=== PATIENT | female | born 1960 | race Caucasian/White ===

== ENCOUNTER 2019-01-08 09:15 | Inpatient (IN) ==
[2019-01-08] MEDS ORDERED: ASPIRIN CHEW 324 MG PO STA (09:33)
[2019-01-08 09:42] LABS: Basophils # (auto) 0.02 K/uL (0-0.2); Basophils % (auto) 0.4 %; Eosinophils # (auto) 0.07 K/uL (0-0.5); Eosinophils % (auto) 1.2 %; Hematocrit (blood only) 41.3 % (37-47); Hemoglobin 14.5 g/dL (12.0-16.0); Immature Granulocytes # (auto) 0.01 K/uL (0.00-0.02); Immature Granulocytes % (auto) 0.2 %; Lymphocytes # (auto) 1.62 K/uL (1.2-3.4); Lymphocytes % (auto) 28.7 %; Mean Corpuscular Hgb Conc 35.1 g/dL (32-36); Mean Corpuscular Volume 88.8 fL (80-100); Mean Platelet Volume 10.6 fL (7.4-10.4); Monocytes # (auto) 0.41 K/uL (0.11-0.59); Monocytes % (auto) 7.3 %; Neutrophils # (auto) 3.51 K/uL (1.4-6.5); Neutrophils % (auto) 62.2 %; Platelet Count 200 K/uL (130-400); RDW Coefficient of Variation 13.1 % (11.5-14.5); RDW Standard Deviation 42.1 fL (36.4-46.3); Red Blood Count 4.65 M/uL (4.2-5.4); White Blood Count 5.64 K/uL (4.8-10.8)
--- NOTE | 2019-01-08 09:48 | Emergency Department Note ---
Entered by Jayne Corley acting as a scribe for ED Provider Note Name: Mirna Martinez Age: 58 Arrives Via: Private vehicle Informant: Patient CC: Chest pain HPI: 58 year old female arrives for evaluation of intermittent central chest pain that started a couple of weeks ago. The patient reports her pain was worse this morning and has trouble breathing. She notes she never experienced an episode like this before. The patient states she has a headache which is normal. She reports she is not a smoker and does not use alcohol or drugs. The patient states her dad has a pacemaker. The patient denies leg swelling, rashes, or loss of consciousness. ROS: See above HPI for pertinent positives & negatives. A total of 10 systems reviewed and were otherwise negative. Past Medical History: Depression Past Surgical History: Caesarean section Family History: Father has a pacemaker Social History: Non smoker Home Medications: Fluoxetine Allergies No known allergies Physical: Vitals: BP: 147/89 Pulse: 65 Resp: 16 Temp: 98.2 F O2 Sat: 97 Delivery: Room air Exam: GENERAL: Patient is mildly anxious appearing and in minimal distress. EYES: No scleral icterus, unremarkable pupils. ENT: Mucous membranes moist, no nasal congestion. NECK: No masses appreciated, no meningismus, trachea is midline. RESPIRATORY: No dyspnea. Clear to auscultation and equal bilaterally. No wheeze, no rhonchi. CARDIOVASCULAR: Regular rate and rhythm. No murmurs, rubs, gallops appreciated. GASTROINTESTINAL: Abdomen soft, non-tender, no peritonitis. Bowel sounds positive. No masses appreciated. BACK: No midline tenderness, no CVA tenderness EXTREMITIES: Normal motion all extremities, no cyanosis, no edema. NEUROLOGIC: Alert and oriented, no acute motor or sensory deficits, no focal weakness, cranial nerves grossly intact. SKIN: No rash, no jaundice, no diaphoresis. ED Course: Prior Medical Record, Triage/Nursing Notes, Medications, Allergies reviewed by Me Vital Signs: reviewed and unremarkable Labs: Reviewed and remarkable for +trop, +dimer Interventions: saline lock, asa 324mg po, heparin bolus/gtt Imaging: XR chest 1V portable HISTORY: Atypical Chest pain COMPARISON: None. FINDINGS: The lungs are clear. Cardiac silhouette is normal in size. No pleural effusions. No pneumothorax. IMPRESSION: No acute process. Electronically signed by: Chano Deluna M.D. 01/08/2019 9:51 AM EKG: Per My Interpretation: Indication Chest Pain: NSR 63 bpm qtc 419 with anterior t wave inversions. No ectopy nor STEMI. There is no previous for comparison. Consults: 1012: I dicussed the patient's case with Dr. Velez, Cardiology. He agrees with the treatment plan. 1036: I discussed the patient's case with Dr. Khan, [facility] Hospitalist. He said to hold off the CT scan until he evaluates the patient. Course: 928: The patient was evaluated in room A2. A complete history and physical exam was performed. 1010: I checked on the patient. No further chest pain. I discussed the risks and benefits of heparin and she agrees. I paged [facility] Cardiology and hosp italist for admission. 1033: I talked to the patient about the CT PE study and she is agreeable. Blood pressure: Normal. No Referral necessary Disposition: Being evaluated by a hospitalist. Differentials: Etiologies such as shingles, musculoskeletal pain, pericarditis, myocarditis, cardiac ischemia, pericardial tamponade, pneumonia, pneumothorax, pleural effusion, hemothorax, pleurisy, aortic pathology, pulmonary embolism, intra-abdominal process, as well as others were considered. Medical Decision Making: Pleasant 58 yr old female with history of depression and father with ID arrives with intermittent substernal chest pains though on arrival no chest pain. Noted some shortness of breath with pain though no breathlessness nor sob currently. She has unremarakble exam with good pulses throughout. CXR OK. EKG with anterior T wave inversions, without previous to compare to. No STEMI noted. She is stable without discomfort. ASA 324mg PO given. Labs with elevated trop and elevated dimer. Likely NSTEMI given EKG changes and symptoms. Dimer is obdulio vated and initially CT PE ordered though at request hospitalist will hold off on this for now. Reviewed pros/cons/risks of heparin and without contraindication patient agrees to starting this. Patient monitored closely and no bleeding issues noted. Hospitalist down to evaluate further. Reviewed with Cards who agrees with plan. Impression: NSTEMI Critical Care Time: I have personally spent greater than 45 minutes of critical care time in the direct management of this patient. ACS with NSTEMI who was started on heparin. This was a life/limb threatening event. This includes time spent evaluating patient, direct bedside care, chart review, placing orders, interpretation of diagnostic studies, discussion with consultants, patient, and family members, as well as other required patient management activities. This 45 minutes is in excess of all separately billable procedures. The scribe's documentation has been prepared under my direction and personally reviewed by me in its entirety. I confirm that the note above accurately reflects all work, treatment, procedures, and medical decision making performed by me. Artemio Rodriguez MD .[email or web address] Impression & Plan Non-ST elevation ID (NSTEMI) Past Med/Surg History Medical History Depression (Chronic) Family History Other Pacemaker Social History Preferred Language: Portuguese Communication Ability: Effective Beliefs That Will Affect Care: None Current Living Situation: Spouse Other Information That Helps Us Care for You: No Feels Safe at Home: Yes Safety Concerns: Feels Safe At This Time Smoking Status: Never smoker Hx Alcohol Use: No Hx Substance Use: No Results & Data Vital Signs Vital Signs - 24 hr 01/08/19 09:19 01/08/19 09:29 01/08/19 09:30 Temperature 36.8 C Temperature Source Oral Sepsis Recent Fever Within 48 Hours No Sepsis New/Unexplained Change in Mental Status No Sepsis Action Taken by Nursing No Action Required Pulse Rate 72 63 65 Pulse Rate [Apical] Pulse Rhythm Regular Pulse Strength Normal Respiratory Rate 20 21 20 Respiratory Effort / Characteristics Non-Labored Spontaneous Respiratory Depth Normal Respiratory Pattern Regular Blood Pressure 150/92 H Blood Pressure [Left Arm] Blood Pressure Mean 111 Blood Pressure Mean [Left Arm] Blood Pressure Position Sitting Pulse Oximetry 97 Oxygen Delivery Method Room Air 01/08/19 09:50 01/08/19 10:00 01/08/19 10:28 Temperature Temperature Source Sepsis Recent Fever Within 48 Hours Sepsis New/Unexplained Change in Mental Status Sepsis Action Taken by Nursing Pulse Rate 65 65 60 Pulse Rate [Apical] 65 Pulse Rhythm Pulse Strength Respiratory Rate 20 18 18 Respiratory Effort / Characteristics Respiratory Depth Respiratory Pattern Blood Pressure 147/89 H 156/85 H Blood Pressure [Left Arm] 147/89 H Blood Pressure Mean 108 108 Blood Pressure Mean [Left Arm] 108 Blood Pressure Position Pulse Oximetry 97 Oxygen Delivery Method Room Air Room Air 01/08/19 10:29 01/08/19 10:30 Temperature Temperature Source Sepsis Recent Fever Within 48 Hours Sepsis New/Unexplained Change in Mental Status Sepsis Action Taken by Nursing Pulse Rate 64 Pulse Rate [Apical] 61 Pulse Rhythm Pulse Strength Respiratory Rate 16 16 Respiratory Effort / Characteristics Respiratory Depth Respiratory Pattern Blood Pressure 155/95 H Blood Pressure [Left Arm] 156/85 H Blood Pressure Mean 115 Blood Pressure Mean [Left Arm] 108 Blood Pressure Position Pulse Oximetry 95 Oxygen Delivery Method Home Medications Current Medication List: was personally reviewed by me Laboratory Data Attestation: I reviewed the patient's lab results. Result diagrams: 01/08/19 09:30 01/08/19 09:30 Lab Results 01/08/19 01/08/19 01/08/19 Range/Units 09:30 09:30 09:30 WBC 5.64 (4.8-10.8) K/uL RBC 4.65 (4.2-5.4) M/uL Hgb 14.5 (12.0-16.0) g/dL Hct 41.3 (37-47) % MCV 88.8 (80-100) fL MCH 31.2 (25-34) pg MCHC 35.1 (32-36) g/dL RDW Std Deviation 42.1 (36.4-46.3) fL RDW Coeff of Chandana 13.1 (11.5-14.5) % Plt Count 200 (130-400) K/uL MPV 10.6 H (7.4-10.4) fL Immature Gran % (Auto) 0.2 % Neut % (Auto) 62.2 % Lymph % (Auto) 28.7 % Phillips % (Auto) 7.3 % Eos % (Auto) 1.2 % Baso % (Auto) 0.4 % Immature Gran # (Auto) 0.01 (0.00-0.02) K/uL Neut # (Auto) 3.51 (1.4-6.5) K/uL Lymph # (Auto) 1.62 (1.2-3.4) K/uL Phillips # (Auto) 0.41 (0.11-0.59) K/uL Eos # (Auto) 0.07 (0-0.5) K/uL Baso # (Auto) 0.02 (0-0.2) K/uL PT 10.6 (9.0-12.0) Seconds INR 1.0 (0.9-1.1) APTT 25.9 (21.0-31.0) Seconds PTT Ratio 1.0 D-Dimer 1000 H* (0-500) ug/L FEU Sodium 142 (136-145) mmol/L Potassium 3.9 (3.5-5.1) mmol/L Chloride 107 (98-107) mmol/L Carbon Dioxide 27 (21-32) mmol/L Anion Gap 7.0 (3-11) BUN 18 (7-18) mg/dl Creatinine 0.88 (0.6-1.2) mg/dl Est Cr Clr Drug Dosing 73.6 ml/min Est GFR ( Amer) 84.5 Est GFR (Non-Af Amer) 72.9 BUN/Creatinine Ratio 20.8 H (10-20) Glucose 107 H (70-99) mg/dl Calcium 8.8 (8.5-10.1) mg/dl Total Bilirubin 0.7 (0.2-1) mg/dl Direct Bilirubin 0.2 (0-0.2) mg/dl AST 16 (15-37) U/L ALT 25 (12-78) U/L Alkaline Phosphatase 109 (45-117) U/L Troponin I 0.215 H* (0-0.045) ng/ml Total Protein 8.0 (6.4-8.2) gm/dl Albumin 4.0 (3.4-5.0) gm/dl Lipase 126 (73-393) U/L Hepatitis C Ab Screen (Neg) 01/08/19 01/08/19 Range/Units 09:30 09:30 WBC (4.8-10.8) K/uL RBC (4.2-5.4) M/uL Hgb (12.0-16.0) g/dL Hct (37-47) % MCV (80-100) fL MCH (25-34) pg MCHC (32-36) g/dL RDW Std Deviation (36.4-46.3) fL RDW Coeff of Chandana (11.5-14.5) % Plt Count (130-400) K/uL MPV (7.4-10.4) fL Immature Gran % (Auto) % Neut % (Auto) % Lymph % (Auto) % Phillips % (Auto) % Eos % (Auto) % Baso % (Auto) % Immature Gran # (Auto) (0.00-0.02) K/uL Neut # (Auto) (1.4-6.5) K/uL Lymph # (Auto) (1.2-3.4) K/uL Phillips # (Auto) (0.11-0.59) K/uL Eos # (Auto) (0-0.5) K/uL Baso # (Auto) (0-0.2) K/uL PT Cancelled (9.0-12.0) Seconds INR Cancelled (0.9-1.1) APTT Cancelled (21.0-31.0) Seconds PTT Ratio Cancelled D-Dimer (0-500) ug/L FEU Sodium (136-145) mmol/L Potassium (3.5-5.1) mmol/L Chloride (98-107) mmol/L Carbon Dioxide (21-32) mmol/L Anion Gap (3-11) BUN (7-18) mg/dl Creatinine (0.6-1.2) mg/dl Est Cr Clr Drug Dosing ml/min Est GFR ( Amer) Est GFR (Non-Af Amer) BUN/Creatinine Ratio (10-20) Glucose (70-99) mg/dl Calcium (8.5-10.1) mg/dl Total Bilirubin (0.2-1) mg/dl Direct Bilirubin (0-0.2) mg/dl AST (15-37) U/L ALT (12-78) U/L Alkaline Phosphatase (45-117) U/L Troponin I (0-0.045) ng/ml Total Protein (6.4-8.2) gm/dl Albumin (3.4-5.0) gm/dl Lipase (73-393) U/L Hepatitis C Ab Screen Neg (Neg) Administered Medications Heparin Sodium/Dextrose (Heparin Sodium/Dextrose) 25,000 units in 500 mls @ 24 mls/hr IV .[id number] [facility]; Protocol Stop: 02/07/19 10:14 Last Admin: 01/08/19 10:25 Dose: 1,200 units/hr, 24 mls/hr Documented by: [id number] Cosigned by: [id number] Discontinued Medications Aspirin (Aspirin) 324 mg PO NOW STA Stop: 01/08/19 09:34 Last Admin: 01/08/19 09:50 Dose: 324 mg Documented by: [id number] Clopidogrel Bisulfate (Plavix) 300 mg PO NOW STA Stop: 01/08/19 11:27 Last Admin: 01/08/19 11:51 Dose: 300 mg Documented by: [id number] Heparin Sodium (Porcine) (Heparin Sodium (Porcine)) Confirm Administered Dose 5 ,000 units .ROUTE .STK-MED ONE Stop: 01/08/19 10:23 Last Admin: 01/08/19 10:26 Dose: 5,000 units Documented by: [id number] Cosigned by: [id number] Heparin Sodium/Dextrose () 1 ea IV NOW STA; Protocol Stop: 01/08/19 10:09 Last Admin: 01/08/19 10:26 Dose: Not Given Documented by: [id number] Pantoprazole Sodium (Protonix) 40 mg PO NOW STA Stop: 01/08/19 11:29 Last Admin: 01/08/19 11:51 Dose: 40 mg Documented by: [id number] Imaging Data Radiologist's Impression: Radiology results as stated below per my review and the radiologist's interpretation: XR chest 1V portable HISTORY: Atypical Chest pain COMPARISON: None. FINDINGS: The lungs are clear. Cardiac silhouette is normal in size. No pleural effusions. No pneumothorax. IMPRESSION: No acute process. Electronically signed by: Chano Deluna M.D. 01/08/2019 9:51 AM Blood Pressure Blood Pressure Findings: Normal blood pressure Blood Pressure Disposition: did not require urgent referral Discharge Plan Visit Data *Final* Discharge Date/Time: 01/08/19 12:06 Chief Complaint: Chest Pain Stated Complaint: CHEST PAIN, COLD ED Provider: Artemio Rodriguez Discharge Problem: Non-ST elevation ID (NSTEMI) Patient Disposition: Admitted As Inpatient Discharge Instructions Interventions: ED Discharge Assessment Last Done: 01/08/19 12:06 The scribe's documentation has been prepared under my direction and personally reviewed by me in its entirety. I confirm that the note above accurately reflects all work, treatment, procedures, and medical decision making performed by me.
--- NOTE | 2019-01-08 09:53 | XRay Report ---
XR chest 1V portable HISTORY: Atypical Chest pain COMPARISON: None. FINDINGS: The lungs are clear. Cardiac silhouette is normal in size. No pleural effusions. No pneumot horax. IMPRESSION: No acute process. Electronically signed by: Chano Deluna M.D. 01/08/2019 9:51 AM
[2019-01-08 09:55] LABS: BUN Creatinine Ratio 20.8 (10-20); Bilirubin Direct 0.2 mg/dl (0-0.2); Calcium 8.8 mg/dl (8.5-10.1); Creatinine Clr Calc Pharmacy 73.6 ml/min; Est GFR (African American) 84.5; Est GFR (Non-African American) 72.9; Potassium 3.9 mmol/L (3.5-5.1)
[2019-01-08 10:06] LABS: Bilirubin,Total 0.7 mg/dl (0.2-1); Troponin I 0.215 ng/ml (0-0.045)
[2019-01-08] MEDS ORDERED: HEPARIN SOD 5,000 UNIT/0.5 ML VIAL ONE (10:22)
[2019-01-08] MEDS: HEPARIN SODIUM/DEXTROSE 25,000 UNITS/500 ML BAG IV SCH (10:25)
[2019-01-08 10:26] LABS: Partial Thromboplastin Time 25.9 Seconds (21.0-31.0); Prothrombin Time 10.6 Seconds (9.0-12.0)
[2019-01-08 10:31] LABS: D Dimer 1000 ug/L FEU (0-500)
--- NOTE | 2019-01-08 10:53 | History & Physical Report ---
Date of Service January 08, 2019 Assessment & Plan (1) Non-ST elevation IN (NSTEMI): Patient will be admitted for a NSTEMI. Patient complains of chest pain with atypical features. But it appears it has been gradually worsening over course of past 2 weeks. Trop is elevated at 0.2 will trend trop Patient received ASA 325 and will load with plavix. Patient will continue on Plavix in AM. Patient will continue on heparin drip. ER ordered D-DIMER but Well's criteria is zero. And history and clinical picture does not FIT Pulmonary emboli. Will hold off further imaging for pulmonary emboli. Started atorvastatin in hs. Check FLP in AM. Plan is to cath in AM. will also obtain echocardiogram. Note: at 16:00 trop tapered down. (2) Depression: will hold off fluoxetine due to interaction with plavix. This slows down conversion to active form. May consider switching to SNRI like cymbalta. Patient also placed on pantoprazole for GI prophylaxis. Disp: PCU. History of Present Illness Patient is a poor historian. Chief Complaint: Chest pain Primary Care Provider: ALEXANDER Lara This is a pleasant 58 yo female who reports having Past Medical history of depression. She states though that for the past 2 weeks she has had intermittent chest pain which is Sharp in nature, mid sternal, non radiating, moderate in intensity. She states pain would occur at rest and during exertion. It would also be accompanied by SOB on exertion. Patient feels like the pain has been worsening for the past 2 weeks. The pain again occured, accompanied by chills this morning which prompted the patient to seek medical attention. Allergies Allergy/AdvReac Type Severity Reaction Status Date / Time fluconazole Allergy Unknown Verified 01/08/19 11:39 Home Medications Home Medications Medication Instructions Recorded Confirmed Type fluoxetine 40 mg capsule 40 mg PO DAILY #90 cap 12/13/18 01/08/19 Rx Past Med/Surg History Medical History Depression (Chronic) Family History Other Pacemaker Social History Preferred Language: Malay Communication Ability: Effective Beliefs That Will Affect Care: None Current Living Situation: Spouse Other Information That Helps Us Care for You: No Feels Safe at Home: Yes Safety Concerns: Feels Safe At This Time Smoking Status: Never smoker Hx Alcohol Use: No Hx Substance Use: No Review of Systems Constitutional: no fever, no sweats and no malaise Eyes: no blind spots Ear, Nose, Mouth, Throat: no ear pain Respiratory: no cough Cardiovascular: no radiating jaw, neck or arm pain Integumentary: no acne Neurologic: no paralysis and no numbness Psychiatric: + depression; no behavioral changes and no hopelessness Endocrine: + fatigue Hematologic / Lymphatic: no easy bleeding Allergy / Immunological: no GI upset with certain foods Physical Exam Constitutional: WD/WN, vitals as above well developed, average body habitus and + disheveled Eyes: PERRL, conjunctivae normal, anicteric sclerae Neck: trachea midline, no thyromegaly Respiratory: normal respiratory effort, lungs clear to auscultation Cardiovascular: RRR, no murmur, no edema Gastrointestinal (Abdomen): normal bowel sounds, soft, nontender, no hepatosplenomegaly Skin: no rashes, warm and dry Neurologic: PERRL, EOMI, accommodation nl, no face palsy, no dysarthria Psychiatric: A+Ox3, euthymic affect Lymphatic: no cervical or axillary lymphadenopathy Results & Data Vital Signs (Past 12 Hours) Vital Signs Temp Pulse Pulse Resp BP BP Pulse Ox 01/08/19 10:29 61 16 156/85 H 95 01/08/19 09:50 65 16 147/89 H 97 01/08/19 09:19 36.8 C 72 20 150/92 H 97 PG Care Time/CCT Total # of Minutes Spent Total Time Spent with Patient: Total time spent is greater than 50% in coordination of care (as documented) at patient's floor/unit and/or counseling patient:
[2019-01-08] MEDS ORDERED: CLOPIDOGREL BISULFATE 300 MG TAB PO STA (11:26)
[2019-01-08] MEDS ORDERED: PANTOprazole 40 MG TAB PO STA (11:28)
[2019-01-08] MEDS ORDERED: NITROGLYCERIN SL 0.4 MG/TAB TAB SL PRN (12:42)
--- NOTE | 2019-01-08 16:27 | Cardiology Consultation ---
Date of Consultation January 08, 2019 Assessment & Plan (1) Non-ST elevation IN (NSTEMI): The patient's symptoms of chest pain are quite atypical. The did not appear to be characteristic of an acute coronary syndrome or even angina. However, her symptoms of throat and neck discomfort last evening would be more characteristic of an acute coronary syndrome. She does have objective abnormalities including elevated cardiac biomarkers and an abnormal EKG. She has some family history of premature coronary disease as her son apparently had myocardial infarction at age 31. She has been started on heparin given dual anti-platelet therapy. Vital signs appear normal in her heart rate is well controlled. We discussed options for evaluation. Based on the objective findings I did recommend coronary angiography. I think more interesting with regards to symptoms as her throat and neck pain which could be resources representative of an acute coronary syndrome. Currently feeling well. I described the risks benefits and alternatives of coronary angiography with the patient and her family. Will plan on proceeding tomorrow. History of Present Illness Reason for Consultation: Chest pain Requesting Physician: Bill Attending Physician: Marty Khan History of Present Illness The patient is a 58-year-old woman without a known history of cardiac disease who presented to the emergency room with symptoms of chest discomfort. Patient states that for approximately 2 weeks she has been having intermittent episodes of a sharp, stabbing discomfort close to the xiphoid process. This symptom does not appear to be associated with any particular activity or position. S eems to occur quite randomly but does occur at least once daily. It does not appear to be associated with significant breathing difficulty. He states that there is some discomfort with deep breathing and perhaps with palpation of that area. In general she is a sedentary individual who appears to provide childcare for her grandchildren as her primary activity. This occasionally involves lifting and infant an at ascending stairs. She states she has no difficulty doing these tasks but occasionally descending stairs she will have some mild dizziness. She has not report symptoms that involve presyncope and she has not had syncope. She occasionally have palpitations that are poorly described. She has difficulty characterizing this sense of palpitation or change in heartbeat. Curiously, last evening she did report a sense of pressure in her throat. She states this lasted for approximately 30 minutes prior to resolution. Allergies Allergy/AdvReac Type Severity Reaction Status Date / Time fluconazole Allergy Unknown Verified 01/08/19 11:39 Home Medications Home Medications Medication Instructions Recorded Confirmed Type fluoxetine 40 mg capsule 40 mg PO DAILY #90 cap 12/13/18 01/08/19 Rx Patient History Medical History Depression (Chronic) Family History Other Pacemaker Social History Preferred Language: Angolan Communication Ability: Effective Beliefs That Will Affect Care: None Current Living Situation: Spouse Other Information That Helps Us Care for You: No Feels Safe at Home: Yes Safety Concerns: Feels Safe At This Time Smoking Status: Never smoker Hx Alcohol Use: No Hx Substance Use: No Review of Systems Review of Systems: All systems reviewed & are unremarkable except as noted in HPI & below No recent constitutional symptoms such as fevers or chills. No lower extremity edema. No orthopnea or paroxysmal nocturnal dyspnea. She does suffer from depression. Physical Exam Physical Exam: She is alert and oriented x3. Mood affect appear normal. She answered all questions appropriately. HEENT: Sclerae are anicteric. Pupils are equal and reactive to light and accommodation. Extraocular movements were intact. Poor dentition. Hirsutism Neuro: Cranial nerves intact Neck: Examination of the submandibular region did not reveal any significant lymphadenopathy. Carotids are palpable bilaterally and free of bruits on auscultation. There was no evidence of jugular venous distention. The thyroid was not enlarged. Lungs: Lungs are clear to auscultation bilaterally. There are no rales wheezes or rhonchi. She has normal respiratory effort without use of accessory muscles. There is normal pulmonary excursion. Cardiac: The rhythm was regular. S1 and S2 were normal. There are no murmurs on examination. The PMI was not markedly displaced on palpation. Abdomen: The abdomen was soft and nontender. Extremities: Patient has bilateral radial pulses that are equal in intensity. There is no evidence cyanosis or clubbing. There was no evidence of significant peripheral edema bilaterally. Skin: There are no rashes noted on examination today. Results & Data Vital Signs (Past 12 Hours) Vital Signs Temp Pulse Pulse Pulse Resp BP BP 01/08/19 15:01 37.0 C 58 L 18 114/68 01/08/19 12:27 36.8 C 57 L 19 141/85 H 01/08/19 12:00 57 L 20 01/08/19 11:30 58 L 23 137/81 01/08/19 11:00 55 L 20 125/85 01/08/19 10:30 64 16 155/95 H 01/08/19 10:29 61 16 156/85 H 01/08/19 10:28 60 18 156/85 H 01/08/19 10:00 65 18 01/08/19 09:50 65 65 20 147/89 H 147/89 H 01/08/19 09:30 65 20 01/08/19 09:29 63 21 01/08/19 09:19 36.8 C 72 20 150/92 H Pulse Ox 01/08/19 15:01 96 01/08/19 12:27 98 01/08/19 12:00 01/08/19 11:30 01/08/19 11:00 01/08/19 10:30 01/08/19 10:29 95 01/08/19 10:28 01/08/19 10:00 01/08/19 09:50 97 01/08/19 09:30 01/08/19 09:29 01/08/19 09:19 97 Laboratory Results Abnormal Lab Results 01/08/19 01/08/19 01/08/19 09:30 09:30 09:30 WBC 5.64 RBC 4.65 Hgb 14.5 Hct 41.3 MCV 88.8 MCH 31.2 MCHC 35.1 RDW Std Deviation 42.1 RDW Coeff of Chandana 13.1 Plt Count 200 MPV 10.6 H Immature Gran % (Auto) 0.2 Neut % (Auto) 62.2 Lymph % (Auto) 28.7 [place] % (Auto) 7.3 Eos % (Auto) 1.2 Baso % (Auto) 0.4 Immature Gran # (Auto) 0.01 Neut # (Auto) 3.51 Lymph # (Auto) 1.62 [place] # (Auto) 0.41 Eos # (Auto) 0.07 Baso # (Auto) 0.02 PT 10.6 INR 1.0 APTT 25.9 PTT Ratio 1.0 D-Dimer 1000 H* Sodium 142 Potassium 3.9 Chloride 107 Carbon Dioxide 27 Anion Gap 7.0 BUN 18 Creatinine 0.88 Est Cr Clr Drug Dosing 73.6 Est GFR ( Amer) 84.5 Est GFR (Non-Af Amer) 72.9 BUN/Creatinine Ratio 20.8 H Glucose 107 H Calcium 8.8 Total Bilirubin 0.7 Direct Bilirubin 0.2 AST 16 ALT 25 Alkaline Phosphatase 109 Troponin I 0.215 H* Total Protein 8.0 Albumin 4.0 Lipase 126 Hepatitis C Ab Screen 01/08/19 01/08/19 09:30 09:30 WBC RBC Hgb Hct MCV MCH MCHC RDW Std Deviation RDW Coeff of Chandana Plt Count MPV Immature Gran % (Auto) Neut % (Auto) Lymph % (Auto) [place] % (Auto) Eos % (Auto) Baso % (Auto) Immature Gran # (Auto) Neut # (Auto) Lymph # (Auto) [place] # (Auto) Eos # (Auto) Baso # (Auto) PT Cancelled INR Cancelled APTT Cancelled PTT Ratio Cancelled D-Dimer Sodium Potassium Chloride Carbon Dioxide Anion Gap BUN Creatinine Est Cr Clr Drug Dosing Est GFR ( Amer) Est GFR (Non-Af Amer) BUN/Creatinine Ratio Glucose Calcium Total Bilirubin Direct Bilirubin AST ALT Alkaline Phosphatase Troponin I Total Protein Albumin Lipase Hepatitis C Ab Screen Neg Diagnostic Findings Chest x-ray obtained in the emergency room did not demonstrate any acute cardiopulmonary disease Echocardiogram demonstrated preserved LV systolic function with stage I diastolic dysfunction. No significant valvular heart disease. ECG Additional Comments: Normal sinus rhythm with diffuse T-wave inversions throughout the precordial leads
[2019-01-08 17:24] LABS: Partial Thromboplastin Ratio 2.7
[2019-01-08 17:37] LABS: Partial Thromboplastin Time 73.7 Seconds (21.0-31.0)
[2019-01-08] MEDS ORDERED: ATORVASTATIN 40 MG TAB PO SCH (21:00)
[2019-01-08 23:59] LABS: Partial Thromboplastin Time 54.5 Seconds (21.0-31.0)
[2019-01-09 06:24] LABS: Troponin I 0.211 ng/ml (0-0.045)
[2019-01-09 06:35] LABS: Partial Thromboplastin Time 55.2 Seconds (21.0-31.0)
[2019-01-09] MEDS: HEPARIN SODIUM/DEXTROSE 25,000 UNITS/500 ML BAG IV SCH (07:58)
[2019-01-09] MEDS ORDERED: CLOPIDOGREL BISULFATE 75 MG TAB PO SCH (09:00)
[2019-01-09] MEDS ORDERED: ASPIRIN 81 MG ECTAB PO SCH (09:00)
[2019-01-09] MEDS ORDERED: FLUOXETINE HCL 20 MG CAP PO SCH (09:00)
[2019-01-09] MEDS ORDERED: NITROGLYCERIN/D5W 100MCG/ML 20ML SYR ONE (10:13)
[2019-01-09] MEDS ORDERED: NiCARDipine HCL INJ 2.5 MG/ML 10 ML AMP ONE (10:13)
[2019-01-09] MEDS ORDERED: MIDAZOLAM HCL 1 MG/ML 2ML VIAL ONE (10:13)
[2019-01-09] MEDS ORDERED: HEPARIN (PORCINE) 1000 UNIT/ML 10 ML (CATH LAB USE ONLY) ONE (10:13)
[2019-01-09] MEDS ORDERED: fentaNYL citrate 100 MCG/2 ML VIAL ONE (10:13)
--- NOTE | 2019-01-09 10:28 | Pre Anesthesia Assessment ---
Date of Service January 09, 2019 Pre Sedation Assessment Vital Signs Temp Pulse Pulse Pulse Resp BP BP 01/09/19 07:17 37.0 C 59 L 21 92/62 L 01/09/19 04:20 37.0 C 69 20 89/60 L 01/08/19 23:53 37.1 C 62 21 91/48 L 01/08/19 19:11 37.1 C 70 18 96/48 L 01/08/19 15:01 37.0 C 58 L 18 114/68 01/08/19 12:27 36.8 C 57 L 19 141/85 H 01/08/19 12:00 57 L 20 01/08/19 11:30 58 L 23 137/81 01/08/19 11:00 55 L 20 125/85 01/08/19 10:30 64 16 155/95 H 01/08/19 10:29 61 16 156/85 H 01/08/19 10:28 60 18 156/85 H Pulse Ox 01/09/19 07:17 95 01/09/19 04:20 95 01/08/19 23:53 97 01/08/19 19:11 96 01/08/19 15:01 96 01/08/19 12:27 98 01/08/19 12:00 01/08/19 11:30 01/08/19 11:00 01/08/19 10:30 01/08/19 10:29 95 01/08/19 10:28 Cardiovascular + regular rate Respiratory + respiratory effort normal Pre-Sedation Airway Assessment Smoking Status: Never smoker Hx Sleep Apnea: No Hx Difficult Intubation: No Short, Thick Neck: No Thyromental Distance: > or= 3.5 Finger Breadths Oral Cavity: + Dental Abnormalities Mallampati Class: III ASA: ASA3 Procedure Planning Contraindications for Sedation: none Current Medications Reviewed: Yes Notes The planned sedation has been discussed with the patient. Informed Consent was obtained. I have identified the patient, determined the appropriateness of sedation and have assessed the patient immediately prior to the procedure. All medicine(s) and interventions are by my order.
[2019-01-09] MEDS ORDERED: ACETAMINOPHEN 325 MG TAB PO PRN (10:55)
--- NOTE | 2019-01-09 10:55 | Cardiac Catheterization ---
Cardiac Cath Procedure: Brief Procedure Date January 09, 2019 Pre-Procedure Diagnosis Pre-Procedure Diagnosis: Non STEMI AUC Score AUC Score: 8 Post-Procedure Diagnosis Post-Procedure Diagnosis: Mild CAD Procedure(s) Performed Procedure(s) Performed: Coronary Angiography and Left Heart Cath Painting Trades Worker Cale Velez MD Hand Ii Thermal Cutter(s) none Estimated Blood Loss Estimated Blood Loss: 5cc Medication(s) Medication(s): Fentanyl, Heparin, Nicardipine, Nitroglycerin and Versed Preliminary Findings Mild ostial RCA disease, otherwise normal coronaries. Normal LVEDP Recommendations Recommendations: Medical Therapy and/or Counseling Specimens Specimens: None Procedural Complication(s) None Disposition PCU
[2019-01-09] MEDS ORDERED: SODIUM CHLORIDE 0.9% 1000ML 1,000 ML IV SCH (11:00)
--- NOTE | 2019-01-09 11:37 | Cardiology Progress Note ---
Date of Service January 09, 2019 Assessment & Plan (1) Non-ST elevation ID (NSTEMI): The etiology of the patient's elevations is unclear. Curiously, the pattern of her biomarker elevation is not entirely consistent with an acute coronary syndrome. She seems to have low level elevation of her biomarkers. She did not have an acute coronary syndrome based on her angiography. She does not have significant obstructive coronary disease. Her presenting symptoms are also very atypical and likely not cardiac in origin. At this point, I would simply continue aggressive risk factor modification according to published guidelines. Daily aspirin would be reasonable. Close monitoring of her blood pressure in the outpatient setting would also be recommended. Subjective This morning the patient claims to be feeling well. She denies any recurrent symptoms of chest discomfort. No breathing difficulties. Review of Systems Review of Systems: Per HPI Physical Exam Physical Exam: She is alert and oriented x3. Mood affect appear normal. She answered all questions appropriately. HEENT: Sclerae are anicteric. Pupils are equal and reactive to light and accommodation. Extraocular movements were intact. Poor dentition Neuro: Cranial nerves intact Lungs: Lungs are clear to auscultation bilaterally. There are no rales wheezes or rhonchi. She has normal respiratory effort without use of accessory muscles. There is normal pulmonary excursion. Cardiac: The rhythm was regular. S1 and S2 were normal. There are no murmurs on examination. The PMI was not markedly displaced on palpation. Abdomen: The abdomen was soft and nontender. Extremities: Patient has bilateral radial pulses that are equal in intensity. There is no evidence cyanosis or clubbing. There was no evidence of significant peripheral edema bilaterally. Skin: There are no rashes noted on examination today. Results & Data Vital Signs (Past 12 Hours) Vital Signs Temp Pulse Pulse Resp BP BP Pulse Ox 01/09/19 11:17 36.9 C 59 L 18 125/77 95 01/09/19 10:11 65 01/09/19 09:00 58 L 01/09/19 07:17 37.0 C 59 L 21 92/62 L 95 01/09/19 04:20 37.0 C 69 20 89/60 L 95 01/08/19 23:53 37.1 C 62 21 91/48 L 97 Laboratory Results Abnormal Lab Results 01/08/19 01/08/19 01/08/19 09:30 16:39 16:39 APTT 73.7 H* PTT Ratio 2.7 Troponin I 0.195 H* Triglycerides Cholesterol LDL Cholesterol, Calc VLDL Cholesterol, Calc HDL Cholesterol Cholesterol/HDL Ratio Hepatitis C Ab Screen Neg 01/08/19 01/08/19 01/09/19 23:27 23:27 05:13 APTT 54.5 H* PTT Ratio 2.0 Troponin I 0.229 H* 0.211 H* Triglycerides 163 H Cholesterol 202 H LDL Cholesterol, Calc 121 VLDL Cholesterol, Calc 33 HDL Cholesterol 48 Cholesterol/HDL Ratio 4 Hepatitis C Ab Screen 01/09/19 05:17 APTT 55.2 H* PTT Ratio 2.0 Troponin I Triglycerides Cholesterol LDL Cholesterol, Calc VLDL Cholesterol, Calc HDL Cholesterol Cholesterol/HDL Ratio Hepatitis C Ab Screen Diagnostic Findings Coronary angiography was performed which revealed some mild ostial right coronary stenosis but no other significant coronary disease. Left ventricular end-diastolic pressures were normal. ECG Additional Comments: Sinus rhythm sinus bradycardia
--- NOTE | 2019-01-09 13:46 | Cardiac Catheterization ---
Date of Service January 09, 2019 Cardiac Cath Report Cardiac Cath Report Procedure performed: Left heart catheterization, coronary angiography Staff organisational psychologist: Cale Velez MD Indication: The patient is a 58-year-old woman without a known history of cardiac disease who presented with symptoms of atypical chest pain, abnormal EKG and elevated cardiac biomarkers. Procedure in detail: The patient was informed of the risks benefits and alternatives to the intended procedure, she understood such and wished to proceed. She was taken to the cardiac catheterization suite in a fasting state. Conscious sedation was administered per protocol and the patient was monitored electrocardiographically throughout today's procedure. The right wrist area was prepped and draped in usual sterile fashion. This area was anesthetized using subcutaneous administration of a lidocaine solution. The right radial artery was then accessed using Seldinger technique, and a arterial sheath was placed at this site over a guidewire. The sheath was used to facilitate passage of the cardiac catheter for coronary angiography and left heart catheterization. Coronary angiogram was then obtained in multiple orthogonal views prior to removal of the catheter. At the conclusion of the procedure the sheath was removed and hemostasis was achieved at the access site using manual pressure. The patient tolerated procedure well, there were no immediate complications. Equipment used: 5 English Alpine 4 Findings: Opening aortic pressure: 85/56 mmHg Closing aortic pressure: 98/64 mmHg Left ventricular pressure: 109/0 mmHg Left ventricular end-diastolic pressure: 5 mmHg Coronary angiography: Left main: Left main coronary artery is normal in size and caliber and bifurcated normally into the left anterior descending left circumflex arteries. No disease in this vessel Left anterior descending: Left anterior descending was a large transapical vessel. It produced a single large first OM branch with approximately 20% stenosis at its ostium. There are other diminutive diagonal branches but no other significant disease in this vessel Left circumflex: Left circumflex was a nondominant vessel. Essentially produced 1 large OM branch. The ongoing AV groove vessel was quite small. There is no significant disease in this vessel Right coronary artery: The right coronary artery was a dominant vessel. It had proximal 50% stenosis at its ostium and one view. There is no other significant disease in this vessel Conclusions: Nonobstructive coronary disease involving the ostium of the right coronary artery and first diagonal branch Right dominant coronary system Normal left ventricular filling pressures No evidence of aortic stenosis
--- NOTE | 2019-01-09 16:43 | Discharge Summary ---
Date of Service January 09, 2019 Admission HPI Per Admitting Provider This is a pleasant 58 yo female who reports having Past Medical history of depression. She states though that for the past 2 weeks she has had intermittent chest pain which is Sharp in nature, mid sternal, non radiating, moderate in intensity. She states pain would occur at rest and during exertion. It would also be accompanied by SOB on exertion. Patient feels like the pain has been worsening for the past 2 weeks. The pain again occured, accompanied by chills this morning which prompted the patient to seek medical attention. Admission Exam Per Admitting Provider Constitutional: WD/WN, vitals as above well developed, average body habitus and + disheveled Eyes: PERRL, conjunctivae normal, anicteric sclerae Neck: trachea midline, no thyromegaly Respiratory: normal respiratory effort, lungs clear to auscultation Cardiovascular: RRR, no murmur, no edema Gastrointestinal (Abdomen): normal bowel sounds, soft, nontender, no hepatosplenomegaly Skin: no rashes, warm and dry Neurologic: PERRL, EOMI, accommodation nl, no face palsy, no dysarthria Psychiatric: A+Ox3, euthymic affect Lymphatic: no cervical or axillary lymphadenopathy Principal Diagnosis elevated troponin, No ACS, Possible myocarditis Discharge Exam Constitutional well developed, well nourished, cooperative and comfortable; no acute distress Eyes PERRL, conjunctivae normal, anicteric sclerae ENMT Prominent facial hair on chin Neck normal visual inspection; no anterior neck swelling and neck nontender Respiratory normal respiratory effort, lungs clear to auscultation Cardiovascular RRR, no murmur, no edema Gastrointestinal (Abdomen) normal bowel sounds, soft, nontender, no hepatosplenomegaly Skin no rashes, warm and dry Discharge Data Allergies Allergy/AdvReac Type Severity Reaction Status Date / Time fluconazole Allergy Unknown Verified 01/08/19 11:39 Consultations 01/08/19 10:13 Consult Cardiology Routine 01/08/19 10:21 ED Decision to Admit Stat 01/08/19 10:58 Consult Cardiology Routine Procedures Performed Operation Date: 01/09/19 07:30 Actual Procedures p Cath, Left with Cors and Vent - Rob Velez MD s Cineradiography w/Routine Exam - Rob Velez MD Ordered Studies 01/09/19 10:05 CL Cath Imgs for PACS use only Routine Hospital Course (1) Chest pain: Mirna Martinez is a 58 year old woman who presented due to a two week history of off and on chest pain that did not seem to be aggravated by exercise, was not associated with shortness of breath or syncope, had some associated palpitations. ED COURSE On presentation to ED she received an EKG which showed non specific T wave changes anteriorly, Positive troponin at .2, started on clopidogrel, ASA 81, therapeutic heparin and atorvastatin and admitted to telemetry. Chest X ray was negative, Chest Pain Was completely resolved by the time she was admitted to the floor. She received an echo which showed only some mild diastolic dysfunction, systolic function was normal, ventricular wall motion was normal, no valvular dysfunction. Troponins did not drop or peak they remained level around 0.2. Patient taken to laboratory mechanical technician and was found to have only the mildest evidence of coronary artery disease at right coronary ostia which could not have caused her presentation. troponins remained level and patient remained asymptomatic. Thus, this was determined not to be an NSTEMI and instead likely represent some sort of mild myocarditis. Heparin, plavix, and atorvastatin were held (ACC ten year risk 2.2%). Patient is to continue baby aspirin until following up with cardiology for further e valuation. Will follow up with primary care in next week, may be worth rechecking troponin in future to check for resolution. If palpitations continue may be worth investigating with holter monitor, has not had any palpitations since admitted. (2) Elevated troponin: Total Time Total Time Spent Total Time Spent (In Minutes): <30 Discharge Plan Discharge Items Patient Disposition: Home - Self-Care Reason For Visit: NSTEMI Discharge Diagnosis: Chest pain, negative CAD, negative Discharge Goals: Decrease discomfort and Diagnostic testing Activity: Resume your previous activity Non-emergency contact: Primary Care Provider and Stave Block Roller Call non-emergency contact if: you have any medication questions Follow-up/Referrals: Moira Vaughn CRNP [Primary Care Provider] - 01/16/19 10:00 am (Please, follow up at [facility] with ALEXANDER Vaughn's associate, Dr. Erickson, on WednesdayJanuary 16 at 10:00 am. *If you need to change this appointment, call the office at [phone].) Mahsa Florez PA-C [Physician Lieutenant General] - 01/27/19 1:00 pm (Please, follow up at [facility] with Dr. Velez's ambulance assistant, Mahsa Florez PA-C, on WednesdayJanuary 27 at 1:00 pm. *The office is located in [address] of [facility] [place]. This is the big building located next to this hospital. If you need to change this appointment, call the office at [phone].) Diet: Regular Addtl Provider Instructions: Ms Martinez, it was our pleasure to evaluate you for your chest pain at [facility]. Despite your elevated troponin level and concerns that you had a heart attack, we do not believe you have had a heart attack or any acute coronary event. We performed a coronary catheterization (Visualization of the inside of your heart blood vessels) which revealed no major blockages in your coronary arteries. It is possible that you may have had a viral infection of your heart muscle but if you did it was very mild and appears resolved. Your testing is all very reassuring. We will be discharging you home on a low dose baby aspirin for 2 weeks and you will follow up with your PCP in the next week and Dr. Velez with [facility] cardiology in the next few weeks. Prescriptions: Continued fluoxetine 40 mg capsule 40 mg PO DAILY Qty: 90 RF: 2 Stand-Alone Forms: Call Back Authorization, [facility] Discharge Orders: Discharge Order (Routine); Ordered 01/09/19 Ordered By: Darron Peña Admission Data Admit Date/Time: 01/08/19 10:55 Attending Provider: Ge Lauren Admit Provider: Marty Khan Primary Care Provider: Moira Vaughn Other Providers: Rob Velez ; Marty Khan Service: Telemetry Other Interventions: Discharge Summary Assessment (RN) Last Done: 01/09/19 17:52 DC Date/Time DO NOT enter until pt leaves facility: 01/09/19 18:23 Supervising Physician Co-Signing Physician Notes I personally examined the patient and verified all rubio points of history and exam, discussed case, and agree with decision making with Dr Peña. Feeling okay. Cath noted. Cardiology input noted and appreciated. Patient feels up to going home. Vitals noted, in general she is awake and alert pleasant no distress. HEENT normocephalic atraumatic mucous membranes are moist. Breathing unlabored no accessory muscle use good effort. Skin shows no rashes no pallor or icterus. Troponins noted. Elevated troponindefinitely not [place] of any type, question a very mild pericarditis or myocarditis given her atypical symptoms and smoldering but steady troponin level. At any rate stable for home, close outpatient follow-up, follow-up with cardiology. Resident Activity Tracking Resident Involvement: Resident Care Provided Care Provided: Adult Hospital Medicine
== END 2019-01-09 18:23 | disposition home or self-care (01) | DRG 282 ==
LOC: ED 09:15 → 2E 10:55 → SUATTDRO 10:55 → 2E 12:06